=== PATIENT | female | born 1975 | race Two or more races ===

== ENCOUNTER 2019-04-11 00:04 | Emergency (ER) | payer SELFPAY ==
[~2019-04-11] VITALS: Ht 160 cm; Wt 96.5 kg
[~2019-04-11 00:04] MED LIST: CIPR500T3 PO; HYDR-3240 PO
[2019-04-11 00:06] VITALS: BP 128/75
--- NOTE | 2019-04-11 00:18 | NUR ---
DR. ZIEGLER AT BEDSIDE EVALUATING PT
[2019-04-11] MEDS ORDERED: ACETAMINOPHEN 500 MG TABLET ONE (01:23)
--- NOTE | 2019-04-11 01:28 | NUR ---
Patient/Caregiver given discharge instructions and they have confirmed that they understand the instructions. Patient ambulatory with steady gait.
== END 2019-04-11 01:30 | disposition home or self-care (01) ==
LOC: ED 00:38
DX: O99.613 Diseases of the digestive system complicating pregnancy, third trimester (principal); K04.7 Periapical abscess without sinus; Z3A.28 28 weeks gestation of pregnancy
CPT/HCPCS: 99283

== ENCOUNTER 2019-04-12 00:59 | Emergency (ER) | payer SELFPAY ==
[~2019-04-12] VITALS: Ht 157.5 cm; Wt 95.8 kg
[2019-04-12 01:04] VITALS: BP 109/73
--- NOTE | 2019-04-12 01:17 | NUR ---
PATIENT TO GO UP TO LABOR AND DELIVERY. PATIENT C/O ABD PAIN, L&D CALLED AND AWARE PATIENT COMING UP
== END 2019-04-12 01:19 ==
LOC: ED 01:17
DX: O99.613 Diseases of the digestive system complicating pregnancy, third trimester (principal); K04.7 Periapical abscess without sinus; M54.5 Low back pain; Z3A.37 37 weeks gestation of pregnancy
CPT/HCPCS: 99284

== ENCOUNTER 2019-04-12 01:29 | Emergency (ER) | payer SELFPAY ==
[~2019-04-12] VITALS: Ht 160 cm; Wt 95.0 kg
--- NOTE | 2019-04-12 01:31 | NUR ---
FHTs dopplered 130s
--- NOTE | 2019-04-12 01:50 | NUR ---
Hari RN: [place] in [place] via [facility].
[2019-04-12] MEDS ORDERED: ACETAMINOPHEN 500 MG TABLET ONE (01:52)
[2019-04-12] MEDS ORDERED: ACETAMINOPHEN 500 MG TABLET PO ONE (02:00)
[2019-04-12 02:09] VITALS: BP 123/56
--- NOTE | 2019-04-12 02:09 | NUR ---
BREAK RN: [place]URNED FROM [place]. MEDICATED PER APR FOR DENTAL PAIN. CALL LIGHT IN REACH.
== END 2019-04-12 02:46 | disposition home or self-care (01) ==
LOC: ED 02:10
DX: O26.893 Other specified pregnancy related conditions, third trimester (principal); K04.7 Periapical abscess without sinus; R10.30 Lower abdominal pain, unspecified; Z3A.37 37 weeks gestation of pregnancy
CPT/HCPCS: 76815; 99284